=== PATIENT | male | born 1995 | race African-American/Black ===

== ENCOUNTER 2019-07-08 02:11 | Emergency (ER) | payer OTHER ==
[~2019-07-08] VITALS: Ht 188 cm; Wt 88.5 kg
--- NOTE | 2019-07-08 02:37 | NUR ---
PT RCEIVED AMBULATORY W/ STABLE GAIT FR HOME C/O CHEST DISCOMFORT PT ABLE TO SPEAK CLEAR COMPLETE SENTENCES PT DENIES LOC, DENIES HITTING HEAD, DENIES FEVERS/ CHILLS/NVD PT IS CLEARLY TENSE BUT COMPLIANT +RECREATIONAL DRUG USE: STATES HE TOOK METH 45MINS AGO MD AT BEDSIDE FOR HX AND PHYSICAL
--- NOTE | 2019-07-08 02:48 | NUR ---
LAB AT BEDSIDE
[2019-07-08 03:13] LABS: BASOPHILS # (AUTO) 0.1 K/uL (0.0-8.0); EOSINOPHILS % (AUTO) 0.3 % (0.0-7.0); HEMATOCRIT 45.3 % (36.7-47.1); HEMOGLOBIN 15.8 g/dL (12.5-16.3); LYMPHOCYTES # (AUTO) 1.8 K/uL (20.0-40.0); LYMPHOCYTES % (AUTO) 32.1 % (20.5-51.5); MEAN CORPUSCULAR HGB CONC 35 g/dL (32.5-36.3); MEAN CORPUSCULAR VOLUME 91.7 fL (73.0-96.2); MONOCYTES # (AUTO) 0.5 K/uL (2.0-10.0); MONOCYTES % (AUTO) 9.4 % (0.0-11.0); NEUTROPHILS # (AUTO) 3.2 K/uL (1.8-8.9); NEUTROPHILS % (AUTO) 57.2 % (38.5-71.5); PLATELET COUNT (AUTO) 255 K/uL (152-348); RED BLOOD CELL COUNT(AUTO) 4.94 MIL/uL (4.06-5.63); WHITE BLOOD COUNT (AUTO) 5.6 K/uL (3.6-10.2)
[2019-07-08 03:15] LABS: CREATININE 1.4 mg/dL (0.6-1.3); POTASSIUM 3.4 mmol/L (3.5-5.1)
--- NOTE | 2019-07-08 03:17 | NUR ---
ACCOMPANIED DOWN TO CT BY BLEACH SUPERVISOR VIA [id number] UP, BED AT LOWEST POSITION PT NAD CALM AND COMPLIANT
--- NOTE | 2019-07-08 03:27 | NUR ---
PT BACK FROM CT
[2019-07-08 03:31] LABS: BILIRUBIN,DIRECT 0.3 mg/dL (0.0-0.2); BILIRUBIN,TOTAL 1.5 mg/dL (0.2-1.0); TOTAL PROTEIN, SERUM 8.1 g/dL (6.4-8.2)
--- NOTE | 2019-07-08 04:05 | NUR ---
Patient discharged to home in stable conditon. Written and verbal after care instructions given. Patient verbalizes understanding of instructions. all belongings w/ pt pt ambulatory w/ stable gait instructed not to drive. pt verbalized understanding
[2019-07-08 04:07] VITALS: BP 132/85
== END 2019-07-08 04:07 | disposition home or self-care (01) ==
LOC: ER 02:20
DX: R07.89 Other chest pain (principal); R51 Headache; F32.9 Major depressive disorder, single episode, unspecified; F11.10 Opioid abuse, uncomplicated; F15.10 Other stimulant abuse, uncomplicated; F14.10 Cocaine abuse, uncomplicated; F17.200 Nicotine dependence, unspecified, uncomplicated
CPT/HCPCS: 36415; 70030-TC; 70450; 71045; 85025; 85730; 93005; A4663